=== PATIENT | female | born 1975 | race Caucasian/White ===

== ENCOUNTER → 2017-05-14 | Day surgery (SDC) | payer OTHER, BC | END | disposition home or self-care (01) | LOC: FRADUS-SUR 12:38 | PROVIDERS: ATTEND Surgery Surgical Oncology | PROC: BH40ZZZ Ultrasonography of Right Breast (ICD-10-PCS; principal; 2017-05-14) | PROC: 0H9T3ZX Drainage of Right Breast, Percutaneous Approach, Diagnostic (ICD-10-PCS; 2017-05-14) | DX: N60.01 Solitary cyst of right breast (principal) | CPT/HCPCS: 76942-TC ==